=== PATIENT | male | born 1955 | race Caucasian/White ===

== ENCOUNTER 2022-12-11 18:35 | Emergency (ER) | payer SELFPAY ==
[~2022-12-11] VITALS: Ht 175.3 cm; Wt 80.7 kg
[2022-12-11] MEDS ORDERED: DOXYCYCLINE HY100 MG PO (19:30)
== END 2022-12-11 19:36 | disposition home or self-care (01) ==
LOC: ER 18:46
DX: L02.11 Cutaneous abscess of neck (principal); I10 Essential (primary) hypertension; E11.9 Type 2 diabetes mellitus without complications; I25.2 Old myocardial infarction
CPT/HCPCS: 99283

== ENCOUNTER 2025-03-04 20:21 | Inpatient (IN) | payer OTHER ==
[~2025-03-04] VITALS: Ht 175.3 cm; Wt 77.6 kg
[~2025-03-04 20:21] MED LIST: DOXYCYCLINE HY100 MG PO
[2025-03-04 20:35] VITALS: TEMP 97.6
[2025-03-04 20:58] LABS: BASOPHILS % 0.4 % (0.0-1.0); EOSINOPHILS # (AUTO) 0.3 (0.0-0.4); HEMATOCRIT 41.8 % (38.2-49.6); HEMOGLOBIN 14.1 g/dL (14.0-18.0); LYMPHOCYTES # (AUTO) 2.9 (1.0-3.2); MEAN CORPUSCULAR HEMOGLOBIN 31.1 pg (28-32); MEAN CORPUSCULAR HGB CONC 33.7 g/dL (31-35); MEAN CORPUSCULAR VOLUME 92.3 fL (81-99); MONOCYTES # (AUTO) 0.8 (0.2-0.8); MONOCYTES % 7.4 % (4.4-11.3); NEUTROPHILS # (AUTO) 7.3 (2.1-6.9); NEUTROPHILS % 63.7 % (38.7-80.0); PLATELET COUNT 289 x10e3/uL (140-360); RED BLOOD COUNT 4.53 x10e6/uL (4.3-5.7); RED CELL DISTRIBUTION WIDTH 13.5 % (11.7-14.4); WHITE BLOOD COUNT 11.39 x10e3/uL (4.8-10.8)
[2025-03-04 21:10] LABS: ALBUMIN 4.1 g/dL (3.5-5.0); ALBUMIN/GLOBULIN RATIO 1.3 (0.8-2.0); ANION GAP 16.2 mmol/L (8-16); BILIRUBIN,TOTAL 1.1 mg/dL (0.2-1.2); CALCIUM 9.4 mg/dL (8.4-10.2); CREATININE, SERUM 1.55 mg/dL (0.72-1.25); POTASSIUM 4.2 mmol/L (3.5-5.1); TOTAL PROTEIN 7.3 g/dL (6.5-8.1)
[2025-03-04] MEDS: KETOROLAC TROMETHAMINE 30 MG/ML VIAL IV STA (21:20)
[2025-03-04 21:28] LABS: BILIRUBIN,URINE 1+ (NEGATIVE); CLARITY,URINE CLOUDY (CLEAR); COLOR,URINE AMBER (YELLOW); GLUCOSE, URINE NEGATIVE (NEGATIVE); KETONES,URINE TRACE (NEGATIVE); LEUKOCYTE ESTERASE ,URINE NEGATIVE (NEGATIVE); NITRITE,URINE POSITIVE (NEGATIVE); PH,URINE 5.5 (5 - 7); PROTEIN,URINE DIPSTICK 2+ (NEGATIVE); URINE UROBILINOGEN 0.2 mg/dL (0.2 - 1)
[2025-03-04 21:50] LABS: BACTERIA,URINE MANY /HPF; EPITHELIAL CELLS,URINE FEW /LPF; RBC,URINE >50 /HPF (0-5); WBC,URINE (MAN) 21-50 /HPF (0-5)
[2025-03-04 21:55] VITALS: PULSE 85; RESP 18
[2025-03-04] MEDS ORDERED: DEXTROSE 50% SYRINGE 50 ML IV PRN (22:15)
[2025-03-04] MEDS ORDERED: SODIUM CHLORIDE FLUSH 10 ML SYR INJ PRN (22:15)
[2025-03-04 23:04] VITALS: BP 133/92; PULSE 82; RESP 18; TEMP 98.2; O2SAT 100
[2025-03-04 23:25] VITALS: PULSE 86; RESP 16; O2SAT 96
[2025-03-05] VITALS (10 sets, daily range): BP systolic 107–157; BP diastolic 72–97; PULSE 64–87; RESP 16–18; TEMP 97.4–98.2; O2SAT 97–98
[2025-03-05] MEDS ORDERED: CLOPIDOGREL75 MG PO (00:11)
[2025-03-05] MEDS ORDERED: METOPROLOL SUCC50 MG PO (00:11)
[2025-03-05] MEDS ORDERED: LISINOPRIL5 MG PO (00:11)
[2025-03-05] MEDS ORDERED: OZEMPIC1 MG/0.71 SQ (00:11)
[2025-03-05] MEDS ORDERED: ATORVASTATIN CA20 MG PO (00:14)
[2025-03-05] MEDS ORDERED: METFORMIN HCL500 MG PO (00:14)
[2025-03-05] MEDS ORDERED: ELIQUIS5 MG PO (00:14)
[2025-03-05] MEDS ORDERED: GLIPIZIDE5 MG PO (00:14)
[2025-03-05] MEDS: Morphine 4mg INJECTION 4 MG/ML INJ IV PRN (03:59)
[2025-03-05 05:35] LABS: BASOPHILS % 0.3 % (0.0-1.0); EOSINOPHILS # (AUTO) 0.3 (0.0-0.4); EOSINOPHILS % 2.8 % (0.0-6.0); HEMATOCRIT 41.9 % (38.2-49.6); LYMPHOCYTES # (AUTO) 2.4 (1.0-3.2); LYMPHOCYTES % 21.1 % (18.0-39.1); MEAN CORPUSCULAR HEMOGLOBIN 31.3 pg (28-32); MEAN CORPUSCULAR HGB CONC 33.4 g/dL (31-35); MEAN CORPUSCULAR VOLUME 93.7 fL (81-99); MONOCYTES # (AUTO) 1.1 (0.2-0.8); MONOCYTES % 9.7 % (4.4-11.3); NEUTROPHILS # (AUTO) 7.6 (2.1-6.9); NEUTROPHILS % 65.8 % (38.7-80.0); PLATELET COUNT 284 x10e3/uL (140-360); RED BLOOD COUNT 4.47 x10e6/uL (4.3-5.7); RED CELL DISTRIBUTION WIDTH 13.3 % (11.7-14.4); WHITE BLOOD COUNT 11.54 x10e3/uL (4.8-10.8)
[2025-03-05 05:51] LABS: ALBUMIN 3.8 g/dL (3.5-5.0); ALBUMIN/GLOBULIN RATIO 1.2 (0.8-2.0); BILIRUBIN,TOTAL 1.1 mg/dL (0.2-1.2); CALCIUM 9.2 mg/dL (8.4-10.2); CREATININE, SERUM 1.68 mg/dL (0.72-1.25); TOTAL PROTEIN 6.9 g/dL (6.5-8.1)
[2025-03-05] MEDS: INSULIN REGULAR, HUMAN 100 UNIT/1 ML SQ SCH (09:08)
[2025-03-05] MEDS: TAMSULOSIN HCL 0.4 MG CAP PO SCH (21:11)
[2025-03-05] MEDS ORDERED: ACETAMINOPHEN 325 MG TAB PO PRN (23:30)
[2025-03-06] VITALS (7 sets, daily range): BP systolic 100–144; BP diastolic 66–96; PULSE 77–90; RESP 18–20; TEMP 97.4–98; O2SAT 97–100
[2025-03-06 05:48] LABS: BASOPHILS % 0.4 % (0.0-1.0); EOSINOPHILS # (AUTO) 0.4 (0.0-0.4); EOSINOPHILS % 4.7 % (0.0-6.0); HEMOGLOBIN 13.9 g/dL (14.0-18.0); LYMPHOCYTES # (AUTO) 2.4 (1.0-3.2); LYMPHOCYTES % 29.6 % (18.0-39.1); MEAN CORPUSCULAR HEMOGLOBIN 31.4 pg (28-32); MEAN CORPUSCULAR HGB CONC 34.8 g/dL (31-35); MEAN CORPUSCULAR VOLUME 90.3 fL (81-99); MONOCYTES # (AUTO) 0.8 (0.2-0.8); MONOCYTES % 9.3 % (4.4-11.3); NEUTROPHILS # (AUTO) 4.6 (2.1-6.9); NEUTROPHILS % 55.6 % (38.7-80.0); PLATELET COUNT 259 x10e3/uL (140-360); RED BLOOD COUNT 4.43 x10e6/uL (4.3-5.7); RED CELL DISTRIBUTION WIDTH 13.2 % (11.7-14.4); WHITE BLOOD COUNT 8.17 x10e3/uL (4.8-10.8)
[2025-03-06 06:02] LABS: ALBUMIN 3.4 g/dL (3.5-5.0); ALBUMIN/GLOBULIN RATIO 1.2 (0.8-2.0); ANION GAP 13.7 mmol/L (8-16); BILIRUBIN,TOTAL 1.1 mg/dL (0.2-1.2); CALCIUM 8.6 mg/dL (8.4-10.2); CREATININE, SERUM 1.09 mg/dL (0.72-1.25); MAGNESIUM 1.3 MG/DL (1.3-2.1); POTASSIUM 3.7 mmol/L (3.5-5.1); TOTAL PROTEIN 6.3 g/dL (6.5-8.1)
[2025-03-06] MEDS: INSULIN GLARGINE 100 UNITS/ML VIAL SQ SCH (09:06)
[2025-03-06] MEDS: METOPROLOL SUCCINATE 50 MG TAB XL PO SCH (09:31)
[2025-03-06] MEDS: ATORVASTATIN 20 MG TAB PO SCH (20:41)
[2025-03-07] VITALS: BP 143/76; PULSE 76; RESP 18; TEMP 97.6; O2SAT 97
[2025-03-07 04:00] VITALS: BP 126/89; PULSE 65; RESP 18; TEMP 98.2; O2SAT 98
[2025-03-07] MEDS: ONDANSETRON HCL INJ 2MG/ML 2ML 2 MG/ML VIAL IV PRN (05:19)
[2025-03-07 06:24] LABS: BASOPHILS # (AUTO) 0.1 (0.0-0.1); BASOPHILS % 0.6 % (0.0-1.0); EOSINOPHILS # (AUTO) 0.4 (0.0-0.4); EOSINOPHILS % 4.6 % (0.0-6.0); HEMATOCRIT 42.4 % (38.2-49.6); HEMOGLOBIN 14.6 g/dL (14.0-18.0); LYMPHOCYTES # (AUTO) 2.8 (1.0-3.2); LYMPHOCYTES % 34.4 % (18.0-39.1); MEAN CORPUSCULAR HEMOGLOBIN 31.5 pg (28-32); MEAN CORPUSCULAR HGB CONC 34.4 g/dL (31-35); MEAN CORPUSCULAR VOLUME 91.6 fL (81-99); MONOCYTES # (AUTO) 0.8 (0.2-0.8); MONOCYTES % 9.8 % (4.4-11.3); NEUTROPHILS # (AUTO) 4.1 (2.1-6.9); NEUTROPHILS % 50.2 % (38.7-80.0); PLATELET COUNT 261 x10e3/uL (140-360); RED BLOOD COUNT 4.63 x10e6/uL (4.3-5.7); RED CELL DISTRIBUTION WIDTH 13.1 % (11.7-14.4); WHITE BLOOD COUNT 8.18 x10e3/uL (4.8-10.8)
[2025-03-07 07:04] LABS: ALBUMIN 3.5 g/dL (3.5-5.0); ALBUMIN/GLOBULIN RATIO 1.2 (0.8-2.0); BILIRUBIN,TOTAL 0.9 mg/dL (0.2-1.2); CALCIUM 8.6 mg/dL (8.4-10.2); CREATININE, SERUM 1.14 mg/dL (0.72-1.25); TOTAL PROTEIN 6.5 g/dL (6.5-8.1)
[2025-03-07 08:00] VITALS: BP 108/83; PULSE 81; RESP 17; TEMP 97.5; O2SAT 100
[2025-03-07] MEDS: POLYETHYLENE GLYCOL 3350 17 GM PACK PO PRN (08:49)
[2025-03-07] MEDS: SENNOSIDES 8.6 MG TAB PO SCH (08:51)
[2025-03-07] MEDS: DOCUSATE SODIUM 100 MG CAP PO SCH (08:51)
[2025-03-07 09:00] VITALS: BP 108/83; PULSE 81; RESP 17; TEMP 97.5; O2SAT 100
[2025-03-07] MEDS ORDERED: KETOROLAC TROMETHAMINE 10 MG TAB PO PRN (09:30)
[2025-03-07] MEDS: SODIUM CHLORIDE 0.9% 1000ML 1,000 ML IV SCH (09:49)
[2025-03-07 12:00] VITALS: BP 119/74; PULSE 60; RESP 18; TEMP 97.7; O2SAT 100
[2025-03-07] MEDS: BISACODYL 10 MG SUPP PR PRN (15:34)
[2025-03-07] MEDS ORDERED: CIPRO500 MG PO (18:41)
[2025-03-07] MEDS ORDERED: KETOROLAC TROME10 MG PO (18:41)
[2025-03-07] MEDS ORDERED: FLOMAX0.4 MG PO (18:41)
[2025-03-07 20:00] VITALS: BP 133/90; PULSE 71; RESP 18; TEMP 97.6; O2SAT 100
== END 2025-03-07 21:00 | disposition home or self-care (01) | DRG 690 ==
LOC: ER 20:53 → ERHOLD 22:10 → MED/SURG 22:45
PROVIDERS: ADMIT Internal Medicine; ATTEND Internal Medicine
DX: N13.6 Pyonephrosis (principal); I11.0 Hypertensive heart disease with heart failure; I50.9 Heart failure, unspecified; E11.9 Type 2 diabetes mellitus without complications; N17.9 Acute kidney failure, unspecified; N40.0 Benign prostatic hyperplasia without lower urinary tract symptoms; I48.0 Paroxysmal atrial fibrillation; E78.5 Hyperlipidemia, unspecified; Z87.891 Personal history of nicotine dependence; I25.2 Old myocardial infarction; Z87.442 Personal history of urinary calculi; Z79.01 Long term (current) use of anticoagulants; Z79.84 Long term (current) use of oral hypoglycemic drugs; Z79.85 Long-term (current) use of injectable non-insulin antidiabetic drugs
CPT/HCPCS: 36415; 74018; 74176; 80053; 81001; 82948; 83735; 85025; 87086; 94799; 99284; J0696; J1885; J2270; J2405; J7030